=== PATIENT | female | born 1995 | race Caucasian/White ===

== ENCOUNTER 2017-08-11 19:40 | Inpatient (IN) | payer OTHER, BC ==
[~2017-08-11 19:40] MED LIST: MICROGESTIN1 EAC1 PO; PERCOCET 5/31 TABLET PO; TORADOL10 MG PO; VENLAFAXINE HCL75 M3 PO; ZOFRAN4 MG PO
[2017-08-11 20:15] VITALS: BP 122/78
[2017-08-11 20:42] LABS: BASOPHIL (%) 0.2 % (0-1); EOSINOPHIL (%) 0.4 % (0-5); HEMATOCRIT 32.4 % (36.0-46.0); HEMOGLOBIN 11.1 G/DL (11.9-15.5); IMMATURE GRANULOCYTE (%) 1.1 % (0.0-0.7); LYMPHOCYTE (%) 13.3 % (15-42); LYMPHOCYTE COUNT 1.2 K/uL (1.0-2.8); MCH 27.5 PG (29.0-34.0); MCHC 34.3 G/DL (30.0-36.0); MCV 80.2 FL (83-99); MONOCYTE (%) 4.7 % (3-12); MONOCYTE COUNT 0.4 K/uL (0-0.8); NEUTROPHIL (%) 80.3 % (45-76); NEUTROPHIL COUNT 7.3 K/uL (1.8-6.4); PLATELET COUNT 221 K/uL (156-360); RBC DIS.WIDTH-CV 12.4 % (11.8-14.6); RBC DIS.WIDTH-SD 35.5 % (39-53); RED BLOOD COUNT 4.04 M/uL (3.80-5.20); WHITE BLOOD COUNT 9.1 K/uL (4.1-10.2)
[2017-08-11 20:52] LABS: ALBUMIN 3.5 g/dL (3.2-4.8); CHLORIDE 103 mEq/L (99-109); POTASSIUM 3.6 mEq/L (3.7-5.4); SODIUM 135 mEq/L (136-147)
[2017-08-11 20:55] LABS: GLUCOSE 76 mg/dL (70-99); TOTAL PROTEIN 6.3 g/dL (6.4-8.3)
[2017-08-11 20:56] LABS: TOTAL BILIRUBIN 0.4 mg/dL (0.0-1.0)
[2017-08-11 20:58] LABS: ALKALINE PHOSPHATASE 104 IU/L (3-129); CREATININE 0.6 mg/dL (0.6-1.3); GFR ESTIMATE (CALCULATED) > 59 mL/min/
[2017-08-11 20:59] LABS: UREA NITROGEN (BUN) 6 mg/dL (9-23)
[2017-08-11 21:00] LABS: AST (GOT) 15 IU/L (2-34)
[2017-08-11 21:01] LABS: ALT (GPT) 13 IU/L (3-49)
[2017-08-11 21:42] LABS: APPEARANCE CLEAR ((CLEAR)); BILIRUBIN NEGATIVE; BLOOD NEGATIVE; COLOR YELLOW ((YELLOW)); GLUCOSE (STRIP) NEGATIVE; KETONES NEGATIVE; LEUKOCYTES NEGATIVE; NITRITE NEGATIVE; PROTEIN (STRIP) NEGATIVE; SPECIFIC GRAVITY 1.009 (1.000-1.030); UCUL ADDED? NO; UROBILINOGEN 0.2 MG/DL (0.2-1.0)
[2017-08-11 23:16] VITALS: BP 122/65
[2017-08-11 23:46] VITALS: BP 120/74
[2017-08-12] VITALS (19 sets, daily range): BP systolic 89–132; BP diastolic 50–70
[2017-08-12 05:23] LABS: BASOPHIL (%) 0.2 % (0-1); EOSINOPHIL (%) 0.2 % (0-5); HEMATOCRIT 28.7 % (36.0-46.0); HEMOGLOBIN 9.5 G/DL (11.9-15.5); IMMATURE GRANULOCYTE (%) 1.1 % (0.0-0.7); LYMPHOCYTE (%) 13.5 % (15-42); LYMPHOCYTE COUNT 1.3 K/uL (1.0-2.8); MCH 27.1 PG (29.0-34.0); MCHC 33.1 G/DL (30.0-36.0); MCV 81.8 FL (83-99); MONOCYTE COUNT 0.4 K/uL (0-0.8); NEUTROPHIL COUNT 7.5 K/uL (1.8-6.4); PLATELET COUNT 179 K/uL (156-360); RBC DIS.WIDTH-CV 12.4 % (11.8-14.6); RBC DIS.WIDTH-SD 36.6 % (39-53); RED BLOOD COUNT 3.51 M/uL (3.80-5.20); WHITE BLOOD COUNT 9.3 K/uL (4.1-10.2)
[2017-08-13] VITALS (8 sets, daily range): BP systolic 107–131; BP diastolic 55–73
[2017-08-14 03:25] VITALS: BP 111/55
[2017-08-14 08:40] VITALS: BP 103/58
[2017-08-14] MEDS ORDERED: OXYCODONE-APAP1 EACH PO (09:07)
[2017-08-14 10:22] VITALS: BP 132/69
[2017-08-14 13:14] VITALS: BP 128/72
== END 2017-08-14 13:20 | disposition home or self-care (01) | DRG 781 ==
LOC: LDRP-OP 19:40 → 2WEST 19:46 → LDRP-OP 11-02 08:19
PROVIDERS: Advanced Practice Midwife; Obstetrics & Gynecology
PROC: 0T768DZ Dilation of Right Ureter with Intraluminal Device, Via Natural or Artificial Opening Endoscopic (ICD-10-PCS; principal; 2017-08-13)
DX: O99.89 Other specified diseases and conditions complicating pregnancy, childbirth and the puerperium (principal); N13.30 Unspecified hydronephrosis; Z3A.32 32 weeks gestation of pregnancy
CPT/HCPCS: 74018; 74181; 76770; 80053; 81003; 85025; 87086; G0378; J0696; J1170; J2405; J2550; J3010; J7120

== ENCOUNTER 2017-08-22 18:38 | Outpatient (CLI) | payer OTHER, BC ==
[~2017-08-22] VITALS: Ht 167.6 cm; Wt 106.3 kg
[~2017-08-22 18:38] MED LIST changes: +OXYCODONE-APAP1 EACH PO
[2017-08-22 19:53] LABS: HEMATOCRIT 34.5 % (36.0-46.0); MCH 27.7 PG (29.0-34.0); MCHC 33.9 G/DL (30.0-36.0); MCV 81.8 FL (83-99); RBC DIS.WIDTH-CV 12.8 % (11.8-14.6); RBC DIS.WIDTH-SD 37.6 % (39-53); WHITE BLOOD COUNT 12.2 K/uL (4.1-10.2)
[2017-08-22 19:54] LABS: HEMOGLOBIN 11.7 G/DL (11.9-15.5); PLATELET COUNT 253 K/uL (156-360); RED BLOOD COUNT 4.22 M/uL (3.80-5.20)
[2017-08-22 20:15] LABS: ALBUMIN 3.6 G/DL (3.2-4.8); CHLORIDE 101 MEQ/L (99-109); POTASSIUM 3.6 MEQ/L (3.7-5.4); SODIUM 135 MEQ/L (136-147); TOTAL BILIRUBIN 0.4 MG/DL (0.0-1.0)
[2017-08-22 20:21] LABS: ALKALINE PHOSPHATASE 91 IU/L (3-129); ALT (GPT) 31 IU/L (3-49); AST (GOT) 16 IU/L (2-34); CREATININE 0.6 MG/DL (0.6-1.3); GFR ESTIMATE (CALCULATED) > 59 mL/min/; GLUCOSE 86 mg/dL (70-99); TOTAL PROTEIN 6.9 G/DL (6.4-8.3); UREA NITROGEN (BUN) 5 mg/dL (9-23)
[2017-08-22 20:22] LABS: APPEARANCE SL.HAZY ((CLEAR)); BILIRUBIN NEGATIVE; BLOOD SMALL; COLOR YELLOW ((YELLOW)); GLUCOSE (STRIP) NEGATIVE; KETONES NEGATIVE; LEUKOCYTES LARGE; NITRITE NEGATIVE; PROTEIN (STRIP) 30; SPECIFIC GRAVITY 1.012 (1.000-1.030); UROBILINOGEN 0.2 MG/DL (0.2-1.0)
[2017-08-22 21:06] LABS: QUANTITATIVE HCG 51135.8 MIU/ML
[2017-08-22 22:30] LABS: BACTERIA RARE /HPF; EPITHELIAL CELLS 1+ /HPF; MUCUS TRACE /LPF; RED BLOOD CELLS 0-5 /HPF (0-5); UCUL ADDED? YES; WHITE BLOOD CELLS 15-20 /HPF (0-5)
[2017-08-23] VITALS (12 sets, daily range): BP systolic 103–126; BP diastolic 52–75
[2017-08-23] MEDS ORDERED: PERCOCET 10/1 TABLET PO (01:33)
[2017-08-23] MEDS ORDERED: TUMS500 MG PO (01:34)
[2017-08-23 06:54] LABS: BASOPHIL (%) 0 % (0-1); EOSINOPHIL (%) 0 % (0-5); HEMATOCRIT 29.2 % (36.0-46.0); IMMATURE GRANULOCYTE (%) 1.4 % (0.0-0.7); LYMPHOCYTE (%) 5.6 % (15-42); LYMPHOCYTE COUNT 0.6 K/uL (1.0-2.8); MCH 26.9 PG (29.0-34.0); MCHC 32.9 G/DL (30.0-36.0); MCV 81.8 FL (83-99); MONOCYTE COUNT 0.5 K/uL (0-0.8); NEUTROPHIL COUNT 9.2 K/uL (1.8-6.4); RBC DIS.WIDTH-CV 12.9 % (11.8-14.6); RBC DIS.WIDTH-SD 38.3 % (39-53); RED BLOOD COUNT 3.57 M/uL (3.80-5.20); WHITE BLOOD COUNT 10.5 K/uL (4.1-10.2)
[2017-08-23 06:56] LABS: HEMOGLOBIN 9.6 G/DL (11.9-15.5)
[2017-08-23 07:06] LABS: PLAT.SUFFICIENCY ADEQUATE; PLATELET CLUMPS PRESENT - PLATELET COUNT APPEARS ADQ.; PLATELET COUNT UNABLE TO REPORT K/uL (156-360)
[2017-08-23] MEDS ORDERED: PRENATAL VITAM1 EA11 PO (13:54)
[2017-08-24] VITALS (8 sets, daily range): BP systolic 98–124; BP diastolic 51–76
[2017-08-24 07:01] LABS: BASOPHIL (%) 0.2 % (0-1); EOSINOPHIL (%) 0.1 % (0-5); HEMATOCRIT 29.3 % (36.0-46.0); HEMOGLOBIN 9.6 G/DL (11.9-15.5); IMMATURE GRANULOCYTE (%) 1.9 % (0.0-0.7); LYMPHOCYTE (%) 7.9 % (15-42); MCHC 32.8 G/DL (30.0-36.0); MCV 82.3 FL (83-99); MONOCYTE (%) 6.7 % (3-12); MONOCYTE COUNT 0.8 K/uL (0-0.8); NEUTROPHIL (%) 83.2 % (45-76); NEUTROPHIL COUNT 10.4 K/uL (1.8-6.4); RBC DIS.WIDTH-CV 12.9 % (11.8-14.6); RBC DIS.WIDTH-SD 38.5 % (39-53); RED BLOOD COUNT 3.56 M/uL (3.80-5.20); WHITE BLOOD COUNT 12.5 K/uL (4.1-10.2)
[2017-08-24 07:09] LABS: PLATELET COUNT 149 K/uL (156-360)
[2017-08-24 07:27] LABS: ALBUMIN 2.7 G/DL (3.2-4.8); ALKALINE PHOSPHATASE 72 IU/L (3-129); ALT (GPT) 41 IU/L (3-49); CHLORIDE 107 MEQ/L (99-109); CREATININE 0.6 MG/DL (0.6-1.3); GFR ESTIMATE (CALCULATED) > 59 mL/min/; POTASSIUM 3.4 MEQ/L (3.7-5.4); SODIUM 140 MEQ/L (136-147); UREA NITROGEN (BUN) 5 mg/dL (9-23)
[2017-08-24 07:28] LABS: AST (GOT) 35 IU/L (2-34); GLUCOSE 108 mg/dL (70-99); TOTAL BILIRUBIN 0.3 MG/DL (0.0-1.0); TOTAL PROTEIN 5.4 G/DL (6.4-8.3)
[2017-08-25 03:20] VITALS: BP 101/58
[2017-08-25 06:52] LABS: BASOPHIL (%) 0.3 % (0-1); EOSINOPHIL (%) 0.8 % (0-5); EOSINOPHIL COUNT 0.1 K/uL (0-0.3); HEMATOCRIT 31.3 % (36.0-46.0); HEMOGLOBIN 9.8 G/DL (11.9-15.5); IMMATURE GRANULOCYTE (%) 1.8 % (0.0-0.7); LYMPHOCYTE (%) 15.6 % (15-42); LYMPHOCYTE COUNT 1.6 K/uL (1.0-2.8); MCH 26.7 PG (29.0-34.0); MCHC 31.3 G/DL (30.0-36.0); MCV 85.3 FL (83-99); MONOCYTE COUNT 0.5 K/uL (0-0.8); NEUTROPHIL (%) 76.5 % (45-76); NEUTROPHIL COUNT 7.7 K/uL (1.8-6.4); RBC DIS.WIDTH-CV 13.2 % (11.8-14.6); RBC DIS.WIDTH-SD 40.6 % (39-53); RED BLOOD COUNT 3.67 M/uL (3.80-5.20)
[2017-08-25 07:15] LABS: ALBUMIN 2.6 G/DL (3.2-4.8); ALKALINE PHOSPHATASE 79 IU/L (3-129); ALT (GPT) 41 IU/L (3-49); AST (GOT) 25 IU/L (2-34); CHLORIDE 108 MEQ/L (99-109); CREATININE 0.5 MG/DL (0.6-1.3); GFR ESTIMATE (CALCULATED) > 59 mL/min/; GLUCOSE 71 mg/dL (70-99); SODIUM 139 MEQ/L (136-147); TOTAL BILIRUBIN 0.2 MG/DL (0.0-1.0); TOTAL PROTEIN 5.1 G/DL (6.4-8.3); UREA NITROGEN (BUN) 6 mg/dL (9-23)
[2017-08-25 07:26] VITALS: BP 114/61
[2017-08-25 09:01] LABS: PLAT.SUFFICIENCY ADEQUATE; PLATELET COUNT 160 K/uL (156-360)
[2017-08-25 11:00] VITALS: BP 108/60
[2017-08-25] MEDS ORDERED: PYRIDIUM100 MG PO (11:42)
[2017-08-25] MEDS ORDERED: ENDOCET 5-3251 EACH PO (11:42)
[2017-08-25] MEDS ORDERED: IBUPROFEN600 MG PO (11:43)
[2017-08-25] MEDS ORDERED: AMOXICILLIN500 MG PO (13:51)
[2017-08-25] MEDS ORDERED: AMPICILLIN TRI500 MG PO (13:58)
== END 2017-08-25 14:55 | disposition home or self-care (01) ==
LOC: EME 18:38 → LDRP-OP 18:38 → 2WEST 08-23 01:04
PROVIDERS: Obstetrics & Gynecology; Obstetrics & Gynecology Gynecology
DX: O23.43 Unspecified infection of urinary tract in pregnancy, third trimester (principal); Z96.0 Presence of urogenital implants; Z87.442 Personal history of urinary calculi; O99.343 Other mental disorders complicating pregnancy, third trimester; F41.9 Anxiety disorder, unspecified; O26.893 Other specified pregnancy related conditions, third trimester; R51 Headache; K59.00 Constipation, unspecified; Z3A.34 34 weeks gestation of pregnancy
CPT/HCPCS: 59025; 76705; 76770; 76775; 80053; 81003; 83605; 84702; 85025; 85027; 87040; 87086; 93005; 93970; 99281; 99285; G0378; J0595; J0696; J3480; J7030; J7120

== ENCOUNTER 2017-09-14 08:40 | Inpatient (IN) | payer OTHER, BC ==
[2017-09-14] VITALS (9 sets, daily range): BP systolic 101–130; BP diastolic 55–89
[~2017-09-14] VITALS: Ht 165.1 cm; Wt 104.0 kg
[~2017-09-14 08:40] MED LIST changes: +AMOXICILLIN500 MG PO; +AMPICILLIN TRI500 MG PO; +ENDOCET 5-3251 EACH PO; +IBUPROFEN600 MG PO; +PERCOCET 10/1 TABLET PO; +PRENATAL VITAM1 EA11 PO; +PYRIDIUM100 MG PO; +TUMS500 MG PO
[2017-09-14 09:50] LABS: BASOPHIL (%) 0.3 % (0-1); EOSINOPHIL (%) 0.7 % (0-5); EOSINOPHIL COUNT 0.1 K/uL (0-0.3); HEMATOCRIT 32.4 % (36.0-46.0); HEMOGLOBIN 11.1 G/DL (11.9-15.5); IMMATURE GRANULOCYTE (%) 1.1 % (0.0-0.7); LYMPHOCYTE COUNT 1.6 K/uL (1.0-2.8); MCH 26.9 PG (29.0-34.0); MCHC 34.3 G/DL (30.0-36.0); MCV 78.6 FL (83-99); MONOCYTE (%) 4.4 % (3-12); MONOCYTE COUNT 0.5 K/uL (0-0.8); NEUTROPHIL (%) 80.5 % (45-76); NEUTROPHIL COUNT 9.7 K/uL (1.8-6.4); PLATELET COUNT 256 K/uL (156-360); RBC DIS.WIDTH-CV 13.6 % (11.8-14.6); RBC DIS.WIDTH-SD 38.5 % (39-53); RED BLOOD COUNT 4.12 M/uL (3.80-5.20); WHITE BLOOD COUNT 12.1 K/uL (4.1-10.2)
[2017-09-15 07:51] VITALS: BP 125/83
[2017-09-15 15:48] VITALS: BP 126/70
[2017-09-15 23:04] VITALS: BP 123/67
[2017-09-16 08:08] VITALS: BP 120/68
== END 2017-09-16 11:00 | disposition home or self-care (01) | DRG 775 ==
LOC: LDRP-OP 08:40 → 2WEST 08:41 → LDRP-OP 10-07 15:48
PROVIDERS: Advanced Practice Midwife
PROC: 10E0XZZ Delivery of Products of Conception, External Approach (ICD-10-PCS; principal; 2017-09-14)
DX: O99.214 Obesity complicating childbirth (principal); E66.9 Obesity, unspecified; O99.02 Anemia complicating childbirth; D50.9 Iron deficiency anemia, unspecified; Z68.37 Body mass index [BMI] 37.0-37.9, adult; Z3A.37 37 weeks gestation of pregnancy; Z37.0 Single live birth
CPT/HCPCS: 85025; C1755; J2590; J7120